=== PATIENT | male | born 1985 | race African-American/Black ===

== ENCOUNTER 2018-01-31 07:22 | Outpatient (CLI) | payer OTHER ==
--- NOTE | 2018-01-31 09:09 | ULT ---
SONOGRAM ABDOMEN COMPLETE: Date: 01/31/18 HISTORY: Upper abdomen pain. FINDINGS: Gallbladder has a normal appearance. Common duct is 0.2 cm. Liver unremarkable without focal mass or intrahepatic biliary dilatation. No free fluid. The spleen, kidneys, and visualized portions of the a bdominal aorta, IVC, and pancreas are unremarkable. IMPRESSION: Normal abdominal sonogram. POS: [facility]
== END 2018-01-31 07:23 | disposition home or self-care (01) ==
LOC: SCSULT 07:22
PROVIDERS: ATTEND Family Medicine
DX: R10.13 Epigastric pain (principal)
CPT/HCPCS: 76700

== ENCOUNTER 2020-04-28 07:37 | Outpatient (CLI) | payer OTHER ==
[2020-04-29 17:36] LABS: SARS-CoV-2 MS2 Positive; SARS-CoV-2 N Gene Negative; SARS-CoV-2 S Gene Negative; SARS-CoV-2 by NAA Not Detected (NotDetected); SARS-CoV-2 orf1ab Negative
== END 2020-04-28 07:38 | disposition home or self-care (01) ==
LOC: LABBT 07:37
PROVIDERS: ATTEND Internal Medicine
DX: R10.32 Left lower quadrant pain (principal); R10.11 Right upper quadrant pain; Z20.828 Contact with and (suspected) exposure to other viral communicable diseases
CPT/HCPCS: 87635; U0003

== ENCOUNTER 2020-05-03 06:25 | Day surgery (SDC) | payer OTHER ==
[2020-04-28 10:34] VITALS: BMI 57.1
[2020-05-03] MEDS ORDERED: Iopamidol-370 76% 500 ML 1 ML ONE (09:10)
[2020-05-03] MEDS ORDERED: Iopamidol 370 76% 50 ML VIAL FS ONE (09:10)
[2020-05-03] MEDS ORDERED: PROPOFOL 200 MG/20 ML VIAL ONE (10:55)
--- NOTE | 2020-05-03 15:04 | CT ---
CT ABDOMEN AND PELVIS WITH IV CONTRAST 05/03/2020 CLINICAL INFORMATION: Left lower quadrant abdominal pain as well as right upper quadrant abdominal pain. Patient is post EG D and colonoscopy. COMPARISON: None. Technique: Multiple contiguous axial CT images are obtained through the abdomen and pelvis with IV contrast. Cor onal reformatted images are provided. FINDINGS: Lower Chest: Lung bases are clear. Vessels: Vascular calcifications are seen in the infrarenal abdominal aorta and in the iliac arteries . Abdomen: Portal vein:Not well opacified on this exam for adequate evaluation. Gallbladder: Within normal limits for CT imaging. Liver: within normal limits. Spleen: within normal limits. Pancreas: within normal limits. Adrenals: within normal limits. Kidneys: within normal limits. Bowel: Normal caliber. Appendix: The appendix is visualized and normal in caliber. Peritoneum: No ascites or free air; no fluid collection. Mesentery and Retroperitoneum: No enlarged mesenteric or retroperitoneal lymph nodes. Abdominal Wall: within normal limits. Pelvis: Reproductive Organs: No pelvic masses. Bladder: within normal limits. Bones: Degenerative changes are seen in the spine there is slight wedging of vertebral bodies at the level of the lumbosacral junction which is likely physiologic. IMPRESSION: No acute findings in the abdomen or pelvis.
--- NOTE | 2020-05-03 16:31 | OP ---
DATE OF PROCEDURE: 05/03/2020 PROCEDURES PERFORMED: Esophagogastroduodenoscopy with biopsy, colonoscopy (diagnostic). INDICATIONS FOR PROCEDURES: Persistent right upper quadrant abdominal pain, left lower quadrant abdominal pain. DESCRIPTION OF PROCEDURE: After the risks and benefits of the procedures were explained to the patient including risks of bleeding, infection, perforation, reactions to anesthesia, aspiration and/or pain, informed consent was obtained. The patient was then taken to the endoscopy suite, where he was maneuvered into the left lateral decubitus position, followed by introduction of deep sedation via propofol and anesthesia support. Once adequate sedation was achieved, the standard gastroscope was introduced into the mouth with intubation of the esophagus, stomach, and the proximal small intestines with the findings listed below. On conclusion of this portion of the procedure, all equipment was removed from the patient and the bed was rotated 180 degrees in anticipation of the colonoscopy. Once in adequate position, a digital rectal examination was performed followed by introduction of the standard colonoscope, which was then advanced to the terminal ileum with mild difficulty due to significant tortuosity and looping of the colonoscope, but did not require any additional measures to facilitate passage of the scope. The quality of the prep was good to excellent. The patient tolerated the procedure well with no immediate perioperative complications. On conclusion of the procedure, all equipment was then removed from the patient and he was transferred to Day Stay in satisfactory condition. EGD FINDINGS: Esophagus: Normal-appearing mucosa was seen in the proximal, mid, and distal esophagus. There was no evidence of erosions, ulcerations, mass lesions, or active/recent bleeding. Stomach: Small areas of mucosal erythema as well as petechiae like clot formation was seen in the gastric fundus and body, that were scattered in terms of their distribution with the areas of erythema measuring no more than 2 to 3 mm in diameter. Multiple biopsies were taken randomly throughout the stomach for evaluation of possible H pylori. Otherwise, normal-appearing mucosa was seen in the gastric cardia, along the greater curvature, antrum, and incisura. There was no evidence of erosions, ulcerations, mass lesions, or active/recent bleeding. Duodenum: Normal-appearing mucosa was seen in both the duodenal bulb and second portion of the duodenum. There was no evidence of erosions, ulcerations, mass lesions, or active/recent bleeding. IMPRESSION: 1. Small scattered areas of mucosal erythema with petechiae clot formation, concerning for NSAID gastritis versus Helicobacter pylori infection, status post biopsies. 2. Otherwise normal upper endoscopy. COLONOSCOPY FINDINGS: Digital rectal exam: Small to medium size external hemorrhoids were seen on external examination, but otherwise normal sphincter tone with no masses palpated. Colon findings: Normal-appearing mucosa was seen within the terminal ileum as well as at the ileocecal valve and appendiceal orifice. Normal-appearing mucosa was then seen in the cecum, ascending colon, transverse colon, descending colon, sigmoid colon, and rectum. Small internal hemorrhoids were seen on rectal retroflexion. IMPRESSION: 1. Small internal and medium size external hemorrhoids. 2. Otherwise normal colonoscopy with no etiology for the patient's abdominal pain seen during this examination. RECOMMENDATIONS: 1. We would continue the high fiber/FODMAP diet, given significant relief in symptoms previously. 2. Can continue IBgard as needed for abdominal pain, but we will send a prescription for dicyclomine 10 mg b.i.d. in relation to continued abdominal pain despite this regimen. 3. We would follow up on the biopsy results with treatment for H pylori if present with triple therapy. 4. We would recommend a CT scan of the abdomen/pelvis for further evaluation of his right upper quadrant and left lower quadrant abdominal pain. 5. Continue other medications. 6. Followup in the GI clinic in 3 weeks for further management of his abdominal pain. Job ID: [id number]
== END 2020-05-03 12:10 | disposition home or self-care (01) ==
LOC: SDC 06:25
PROVIDERS: ATTEND Internal Medicine
PROC: 0DB68ZX Excision of Stomach, Via Natural or Artificial Opening Endoscopic, Diagnostic (ICD-10-PCS; principal; 2020-05-03)
PROC: 0DJD8ZZ Inspection of Lower Intestinal Tract, Via Natural or Artificial Opening Endoscopic (ICD-10-PCS; principal; 2020-05-03)
DX: K64.4 Residual hemorrhoidal skin tags (principal); K64.8 Other hemorrhoids; L53.8 Other specified erythematous conditions
CPT/HCPCS: 74177; 88305; 88312; J2704; Q9967

== ENCOUNTER 2021-04-12 15:50 | Outpatient (CLI) | payer OTHER | END 2021-04-12 15:51 | disposition home or self-care (01) | LOC: ULT 15:50 | PROVIDERS: ATTEND Family Medicine | DX: M79.605 Pain in left leg (principal) ==

== ENCOUNTER 2023-02-07 08:38 | Outpatient (CLI) | payer BC ==
[2023-02-07 09:56] LABS: Bilirubin Neg (Negative); Blood, Urine Negative (Negative); Clarity Clear (Clear); Glucose, Urine (Dipstick) Normal (Negative); Ketone, Urine Negative (Negative); Leukocyte Negative (Negative); Nitrite Negative (Negative); Protein, Urine (Dipstick) Negative (Neg-Trace); Urobilinogen Normal mg/dL (Less than 2)
[2023-02-07 10:04] LABS: Hemoglobin 13.2 g/dL (13.5-17.5); Mean Corpuscular HGB CONC 32.9 g/dL (32.0-36.0); Mean Corpuscular Hemoglobin 27.7 pg (27.0-33.0); Mean Corpuscular Volume 84.2 fl (81.2-95.1); Mean Platelet Volume 9.3 fl (7.4-10.4); Platelet Count 286 10x3/uL (150-450); RBC Distribution Width 13.5 % (11.5-14.5); Red Blood Cell (RBC) Count 4.76 10x6/uL (4.32-5.72); White Blood Cell (WBC) Count 9.7 10x3/uL (3.5-10.5)
[2023-02-07 10:15] LABS: Bacteria/HPF Rare-Few HPF (None Seen); RBC/HPF 0-3 HPF (0-3); Squamous Epithelial 0-3 HPF (0-3); WBC/HPF 0-3 HPF (0-3)
[2023-02-07 10:20] LABS: Anion Gap 12 mmol/L (10-20); BUN (Urea Nitrogen) 17 mg/dL (8.9-20.6); Calc. Creatinine Clearance 0 mL/min (70-130); Calcium 9.3 mg/dL (7.8-10.44); Carbon Dioxide 29 mmol/L (22-29); Chloride 102 mmol/L (98-107); Estimated GFR 91; Glucose 103 mg/dL (70-105); Potassium 4.3 mmol/L (3.5-5.1); Sodium 139 mmol/L (136-145)
[2023-02-07 10:21] LABS: PTT 28.3 sec (22.0-33.0); Prothrombin Time 10.3 sec (9.5-12.1)
== END 2023-02-07 08:39 | disposition home or self-care (01) ==
LOC: LABBT 08:38
PROVIDERS: ATTEND Urology
DX: Z01.818 Encounter for other preprocedural examination (principal); N50.89 Other specified disorders of the male genital organs
CPT/HCPCS: 71046; 80048; 81001; 85027; 85610; 85730; 87086; 93005; 93010

== ENCOUNTER 2023-02-16 08:46 | Day surgery (SDC) | payer BC ==
[2023-02-16] MEDS ORDERED: fentaNYL PF 100 MCG/2 ML SYRINGE ONE (11:45)
[2023-02-16] MEDS ORDERED: Bupivacaine 0.25% HCL 30 ML VIAL ONE (11:48)
[2023-02-16] MEDS ORDERED: Sodium Chloride 0.9% 100 ML ONE (11:54)
[2023-02-16] MEDS ORDERED: CEFAZOLIN 2 GM VIAL ONE (11:54)
[2023-02-16] MEDS ORDERED: Ondansetron PF 4 MG/2 ML Vial ONE (12:07)
[2023-02-16] MEDS ORDERED: Lidocaine 1% PF 5 ML VIAL ONE (12:07)
[2023-02-16] MEDS ORDERED: Dexamethasone 20 MG/5 ML VIAL ONE (12:07)
[2023-02-16] MEDS ORDERED: Glycopyrrolate 0.2 MG/ML 5 ML SYRINGE ONE (12:07)
[2023-02-16] MEDS ORDERED: PROPOFOL 200 MG/20 ML VIAL ONE (12:07)
[2023-02-16] MEDS ORDERED: Succinylcholine 200 MG/10 ml SYRINGE FS ONE (12:07)
[2023-02-16] MEDS ORDERED: ePHEDrine Sulfate 50 MG/10 ML VIAL ONE (12:07)
[2023-02-16] MEDS ORDERED: hydrALAZINE 20 MG/ML VIAL ONE (13:22)
== END 2023-02-16 14:55 | disposition home or self-care (01) ==
LOC: SDC 08:46
PROVIDERS: ATTEND Urology
PROC: 0VB Male Reproductive System, Excision (ICD-10-PCS; principal; 2023-02-16)
DX: D29.8 Benign neoplasm of other specified male genital organs (principal); C62.92 Malignant neoplasm of left testis, unspecified whether descended or undescended; I10 Essential (primary) hypertension; I48.0 Paroxysmal atrial fibrillation; E66.01 Morbid (severe) obesity due to excess calories; Z68.43 Body mass index [BMI] 50.0-59.9, adult; Z79.899 Other long term (current) drug therapy
CPT/HCPCS: 88305; 88341; 88342; J0360; J1100; J2405; J2704; J3490; S0020